=== PATIENT | male | born 1985 | race Two or more races ===

== ENCOUNTER 2019-09-03 15:11 | Emergency (ER) | payer MEDICAID ==
[~2019-09-03] VITALS: Ht 172.7 cm; Wt 90.7 kg
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
[2019-09-03 15:22] VITALS: BP 130/88
[2019-09-03] MEDS ORDERED: Ketorolac 30mg Inj ONE (15:29)
[2019-09-03] MEDS ORDERED: Ketorolac 30mg Inj IM ONE (15:30)
[2019-09-03] MEDS ORDERED: NAPROXEN500 M2 ORAL (15:31)
[2019-09-03] MEDS ORDERED: LIDODERM700 M1 TOPIC (15:31)
[2019-09-03] MEDS ORDERED: ROBAXIN-750750 MG PO (15:31)
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
[2019-09-03 15:42] VITALS: BP 132/86
--- NOTE | 2019-09-03 15:42 | NUR ---
ER DISCHARGE NOTE: Patient is cleared to be discharged per ERMD, pt is aox4, on room air, with stable vital signs. pt was given dc and prescription instructions, pt was able to verbalize understanding, pt id band removed without complications. pt is able to ambulate with steady gait. pt took all belongings.
== END 2019-09-03 15:42 | disposition home or self-care (01) ==
LOC: EMR 15:25
DX: M54.9 Dorsalgia, unspecified (principal)
CPT/HCPCS: 96372; J1885; Z7502; 99283

== ENCOUNTER 2019-09-21 13:42 | Emergency (ER) | payer MEDICAID ==
[~2019-09-21] VITALS: Ht 172.7 cm; Wt 81.6 kg
[~2019-09-21 13:42] MED LIST: LIDODERM700 M1 TOPIC; NAPROXEN500 M2 ORAL; ROBAXIN-750750 MG PO
[2019-09-21 13:55] VITALS: BP 129/81
--- NOTE | 2019-09-21 13:57 | Emergency Room Report ---
History of Present Illness General Chief Complaint: Chest Pain Source: Patient Present Illness HPI 33-year-old male, no past medical history no surgical history presents with chest pain x2 days feels like sharp, pressure-like radiating to the back, no aggravating relieving factors severity is moderate, constant patient also felt some facial numbness, no diaphoresis no dyspnea on exertion, patient denies any family history of cardiac disease patient presents for evaluation Allergies: Coded Allergies: No Known Allergies (Unverified , 09/03/19) COVID-19 Screening Contact w/high risk pt: No Recent Travel to affected area: No Experienced COVID-19 symptoms?: No Patient History Past Medical History: see triage record Reviewed Nursing Documentation: PMH: Agreed; PSxH: Agreed Nursing Documentation-PMH Past Medical History: No Stated History Review of Systems All Other Systems: negative except mentioned in HPI Physical Exam Sp02 EP Interpretation: reviewed, normal General Appearance: well appearing, no apparent distress, alert Head: normocephalic, atraumatic Eyes: bilateral eye PERRL, bilateral eye EOMI ENT: uvula midline, moist mucus membranes Neck: supple, thyroid normal, supple/symm/no masses Respiratory: lungs clear, no respiratory distress, no retraction, no accessory muscle use Cardiovascular #1: normal peripheral pulses, regular rate, rhythm, no edema, no gallop, no murmur Gastrointestinal: non tender, soft, no guarding, no rebound Musculoskeletal: normal inspection Neurologic: alert, oriented x3 Psychiatric: mood/affect normal Skin: no rash, warm/dry Medical Decision Making Diagnostic Impression: Primary Impression: Chest pain Qualified Codes: R07.9 - Chest pain, unspecified ER Course No evidence of ACS, pulmonary embolism, pneumothorax, pneumonia. Historically not abrupt in onset, tearing or ripping, pulses symmetric, no evidence of aortic dissection. Patient presents with atypical chest pain, CT scan negative troponin negative, EKG negative, chest x-ray negative Reassured patient disposition home with return precautions, patient was given anti-inflammatories Laboratory Tests Test 09/21/19 13:55 White Blood Count 9.9 K/UL (4.8-10.8) Red Blood Count 4.56 M/UL (4.70-6.10) L Hemoglobin 14.8 G/DL (14.2-18.0) Hematocrit 40.1 % (42.0-52.0) L Mean Corpuscular Volume 88 FL (80-99) Mean Corpuscular Hemoglobin 32.5 PG (27.0-31.0) H Mean Corpuscular Hemoglobin Concent 36.9 G/DL (32.0-36.0) H Red Cell Distribution Width 10.4 % (11.6-14.8) L Platelet Count 242 K/UL (150-450) Mean Platelet Volume 7.3 FL (6.5-10.1) Neutrophils (%) (Auto) 59.0 % (45.0-75.0) Lymphocytes (%) (Auto) 30.1 % (20.0-45.0) Monocytes (%) (Auto) 7.0 % (1.0-10.0) Eosinophils (%) (Auto) 2.7 % (0.0-3.0) Basophils (%) (Auto) 1.1 % (0.0-2.0) Prothrombin Time 10.2 SEC (9.30-11.50) Prothrombin Time INR 1.0 (0.9-1.1) Activated Partial Thromboplast Time 26 SEC (23-33) Sodium Level 144 MMOL/L (136-145) Potassium Level 3.7 MMOL/L (3.5-5.1) Chloride Level 107 MMOL/L (98-107) Carbon Dioxide Level 28 MMOL/L (21-32) Anion Gap 9 mmol/L (5-15) Blood Urea Nitrogen 17 mg/dL (7-18) Creatinine 1.0 MG/DL (0.55-1.30) Estimated Glomerular Filtration Rate > 60 mL/min (>60) Glucose Level 109 MG/DL (74-106) H Calcium Level 8.5 MG/DL (8.5-10.1) Total Bilirubin 0.4 MG/DL (0.2-1.0) Aspartate Amino Transferase (AST) 20 U/L (15-37) Alanine Aminotransferase (ALT) 34 U/L (12-78) Alkaline Phosphatase 62 U/L (46-116) Troponin I 0.000 ng/mL (0.000-0.056) Pro-B-Type Natriuretic Peptide 32 pg/mL (0-125) Total Protein 7.9 G/DL (6.4-8.2) Albumin 4.2 G/DL (3.4-5.0) Globulin 3.7 g/dL Albumin/Globulin Ratio 1.1 (1.0-2.7) EKG Diagnostic Results EKG Time: 13:38 EP Interpretation: NSR, rate 76, QTc of 387, no acute ST elevations, normal axis Rhythm Strip Diag. Results Rhythm Strip Time: 13:56 EP Interpretation: yes Rate: 79 Rhythm: NSR, no PVC's, no ectopy Chest X-Ray Diagnostic Results Chest X-Ray Diagnostic Results : Chest X-Ray Ordered: Yes # of Views/Limited/Complete: 1 View Indication: Chest Pain EP Interpretation: Yes Interpretation: no consolidation, no effusion, no pneumothorax, no acute cardiopulmonary disease Impression: No acute disease Electronically Signed by: Jorge Hayward MD CT/MRI/US Diagnostic Results CT/MRI/US Diagnostic Results : Impression Procedure: CTA Chest Abd/Pel wo/w Cont Indication: Chest and abdominal pain. Technique: CT angiogram the chest, abdomen and pelvis performed utilizing automated exposure control with intravenous contrast. Axial, sagittal and coronal reconstructions were obtained. 3-D volumetric reconstructions were also performed. CT dose: Total DLP 609 mGycm; CTDI vol 76.3 mGy Comparison: No prior CTs available for comparison Findings: Images degraded by motion artifact. Within these limitations: Thoracic and abdominal aorta are normal in caliber. There is no evidence of aortic dissection or aneurysm. No atherosclerotic calcifications identified. Imaged portions of the bilateral vertebral and common carotid arteries are patent. Imaged visceral vessels are patent. No visceral artery aneurysm identified. Bilateral iliac arteries are normal in caliber. Imaged portions of the bilateral common femoral and superficial/profunda femoris arteries are patent. There is no saddle or large central pulmonary embolism. There is no focal airspace consolidation, pleural effusion or pneumothorax. Heart size within normal limits. No pericardial effusion. There is soft tissue attenuation in the anterior mediastinum most likely representing residual thymus. No pathologically enlarged lymphadenopathy. Thyroid is remarkable. No arterial enhancing liver lesion. Hepatic contour appears smooth. Portal veins appear patent. No CT evident gallstones or pericholecystic inflammatory changes. No biliary ductal dilatation. Spleen, adrenal glands and pancreas unremarkable. Kidneys enhance symmetrically. No urinary tract stone, hydronephrosis or perinephric stranding. No evidence of bowel obstruction or focal inflammatory stranding within the mesentery. Appendix is normal. Bladder is unremarkable in appearance. No acute osseous abnormality identified. There is a tiny fat-containing umbilical hernia. IMPRESSION: No aortic aneurysm or dissection. No saddle or large central pulmonary embolism. No acute osseous abnormality. The CT scanner at [facility] is accredited by the [employer] and the scans are performed using protocols designed to limit radiation exposure to as low as reasonably achievable to attain images of sufficient resolution adequate for diagnostic evaluation. Dictated By: Jatin Atr M.D. Electronically Signed By: Jatin Art M.D. Signed Date/Time 09/21/19 1556 CC: Jorge Hayward MD Disposition: HOME, SELF-CARE Condition: Stable Scripts Ibuprofen* (MOTRIN*) 600 Mg Tablet 600 MG ORAL Q8H PRN for FOR PAIN, #30 TAB 0 Refills Prov: Jorge Hayward MD 09/21/19 Referrals: [facility]. [facility] Patient Instructions: Nonspecific Chest Pain Additional Instructions: The patient was provided with discharge instructions, notified to follow-up with a primary care doctor and or specialist in the next 24-48 hours, and to return to the ED if they have worsening of their symptoms. Please note that this report is being documented using [employer] technology. This can lead to erroneous entry secondary to incorrect interpretation by the dictating instrument. Jorge Hayward MD Sep 21, 2019 13:57
[2019-09-21] MEDS ORDERED: Acetaminophen 500mg (ES) tab ORAL ONE (14:00)
[2019-09-21] MEDS ORDERED: Omnipaque 350 100ml vial INJ PRN (14:00)
--- NOTE | 2019-09-21 14:00 | NUR ---
ED Nurse Note: Patient walked into ED from home c/o chest pain x 3 days. Pain is 8/10 stabbing/aching, feels like pressure. Patient states he started having right sided facial numbness 2 days ago, which prompted him to come to the ED. Patient shows no neuro deficits at this time. Patient AxO x 4, on the cardiac catheterization technologist, bed in lowest position. 20 g IV started in left AC, blood drawn and sent to lab.
[2019-09-21 14:15] LABS: ANION GAP 9 mmol/L (5-15); BLOOD UREA NITROGEN 17 mg/dL (7-18); CALCIUM 8.5 MG/DL (8.5-10.1); CARBON DIOXIDE 28 MMOL/L (21-32); CHLORIDE 107 MMOL/L (98-107); POTASSIUM 3.7 MMOL/L (3.5-5.1); SODIUM 144 MMOL/L (136-145)
[2019-09-21 14:17] LABS: BASOPHILS % (AUTO) 1.1 % (0.0-2.0); EOSINOPHILS % (AUTO) 2.7 % (0.0-3.0); HEMATOCRIT 40.1 % (42.0-52.0); HEMOGLOBIN 14.8 G/DL (14.2-18.0); LYMPHOCYTES % (AUTO) 30.1 % (20.0-45.0); MEAN CORPUSCULAR VOLUME 88 FL (80-99); PLATELET COUNT 242 K/UL (150-450); RED BLOOD COUNT 4.56 M/UL (4.70-6.10); RED CELL DISTRIBUTION WIDTH 10.4 % (11.6-14.8); WHITE BLOOD COUNT 9.9 K/UL (4.8-10.8)
[2019-09-21 14:28] LABS: ALANINE AMINOTRANSFERASE 34 U/L (12-78); ALBUMIN 4.2 G/DL (3.4-5.0); ALBUMIN/GLOBULIN RATIO 1.1 (1.0-2.7); ALKALINE PHOSPHATASE 62 U/L (46-116); ASPARTATE AMINO TRANSFERASE 20 U/L (15-37); BILIRUBIN,TOTAL 0.4 MG/DL (0.2-1.0)
--- NOTE | 2019-09-21 14:48 | Diagnostic Imaging Report ---
Indication: Chest pain Technique: XRAY Chest 1v Comparison: None Findings: Heart size and mediastinal contours are within normal limits for AP technique. There is no focal airspace consolidation, pneumothorax or pleural effusion. Osseous structures demonstrate no acute abnormality. Impression: No radiographic evidence of acute cardiopulmonary disease.
--- NOTE | 2019-09-21 14:49 | NUR ---
ED Nurse Note: Patient returned from CT
[2019-09-21 16:00] VITALS: BP 121/78
--- NOTE | 2019-09-21 16:01 | Diagnostic Imaging Report ---
Indication: Chest and abdominal pain. Technique: CT angiogram the chest, abdomen and pelvis performed utilizing automated exposure control with intravenous contrast. Axial, sagittal and coronal reconstructions were obtained. 3-D volumetric reconstructions were also performed. CT dose: Total DLP 609 mGycm; CTDI vol 76.3 mGy Comparison: No prior CTs available for comparison Findings: Images degraded by motion artifact. Within these limitations: Thoracic and abdominal aorta are normal in caliber. There is no evidence of aortic dissection or aneurysm. No atherosclerotic calcifications identified. Imaged portions of the bilateral vertebral and common carotid arteries are patent. Imaged visceral vessels are patent. No visceral artery aneurysm identified. Bilateral iliac arteries are normal in caliber. Imaged portions of the bilateral common femoral and superficial/profunda femoris arteries are patent. There is no saddle or large central pulmonary embolism. There is no focal airspace consolidation, pleural effusion or pneumothorax. Heart size within normal limits. No pericardial effusion. There is soft tissue attenuation in the anterior mediastinum most likely representing residual thymus. No pathologically enlarged lymphadenopathy. Thyroid is remarkable. No arterial enhancing liver lesion. Hepatic contour appears smooth. Portal veins appear patent. No CT evident gallstones or pericholecystic inflammatory changes. No biliary ductal dilatation. Spleen, adrenal glands and pancreas unremarkable. Kidneys enhance symmetrically. No urinary tract stone, hydronephrosis or perinephric stranding. No evidence of bowel obstruction or focal inflammatory stranding within the mesentery. Appendix is normal. Bladder is unremarkable in appearance. No acute osseous abnormality identified. There is a tiny fat-containing umbilical hernia. IMPRESSION: No aortic aneurysm or dissection. No saddle or large central pulmonary embolism. No acute osseous abnormality. The CT scanner at [facility] is accredited by the [employer] and the scans are performed using protocols designed to limit radiation exposure to as low as reasonably achievable to attain images of sufficient resolution adequate for diagnostic evaluation.
[2019-09-21] MEDS ORDERED: IBUPROFEN600 M1 ORAL (16:12)
[2019-09-21] MEDS ORDERED: Ketorolac 30mg Inj IV ONE (16:15)
[2019-09-21 16:35] VITALS: BP 121/78
--- NOTE | 2019-09-21 16:35 | NUR ---
ER DISCHARGE NOTE: Patient is cleared to be discharged per Dr. Hayward, pt is aox4, on room air, with stable vital signs. pt was given dc and prescription instructions, pt was able to verbalize understanding, pt id band and iv site removed without complications. pt is able to ambulate with steady gait. pt took all belongings.
== END 2019-09-21 16:35 | disposition home or self-care (01) ==
LOC: EMR 14:21
DX: R07.9 Chest pain, unspecified (principal); K42.9 Umbilical hernia without obstruction or gangrene
CPT/HCPCS: 36415; 71045; 71275; 74174; 80053; 83880; 84484; 85025; 85610; 85730; 93005; 96361; 96374; J1885; J7030; Q9967; Z7502; 99284